=== PATIENT | female | born 1950 | race Caucasian/White ===

== ENCOUNTER 2020-07-05 06:30 | Day surgery (SDC) | payer BC, MEDICARE ==
[2020-07-03 13:25] VITALS: BMI 27.9
[2020-07-05] MEDS ORDERED: Lidocaine 1% MPF 2 ML VIAL ONE (06:48)
[2020-07-05] MEDS ORDERED: Lidocaine 1% PF 5 ML VIAL ONE (08:28)
[2020-07-05] MEDS ORDERED: PROPOFOL 40 ML ONE (08:28)
== END 2020-07-05 10:30 | disposition home or self-care (01) ==
LOC: CSHSDC 06:30
PROVIDERS: ATTEND Internal Medicine Gastroenterology
PROC: 0DJD8ZZ Inspection of Lower Intestinal Tract, Via Natural or Artificial Opening Endoscopic (ICD-10-PCS; principal; 2020-07-05)
DX: Z12.11 Encounter for screening for malignant neoplasm of colon (principal); K57.30 Diverticulosis of large intestine without perforation or abscess without bleeding; K64.9 Unspecified hemorrhoids; Z86.010 Personal history of colon polyps
CPT/HCPCS: J2704